=== PATIENT | female | born 1940 | race Hispanic/Latino ===

== ENCOUNTER → 2018-11-06 | Outpatient (CLI) | payer OTHER, MEDICARE | END | disposition home or self-care (01) | LOC: RAH 08:10 | PROVIDERS: ATTEND Internal Medicine | DX: R10.9 Unspecified abdominal pain (principal); I70.0 Atherosclerosis of aorta; Z90.49 Acquired absence of other specified parts of digestive tract | CPT/HCPCS: 76700 ==

== ENCOUNTER 2018-11-27 22:06 | Inpatient (IN) | payer OTHER, MEDICARE ==
[~2018-11-27] VITALS: Ht 147.3 cm; Wt 45.7 kg
[2018-11-27] MEDS ORDERED: ONDANSETRON HCL 4 MG/2 ML VIAL ONE (23:01)
[2018-11-27] MEDS ORDERED: ACETAMINOPHEN EXTRA STRENGTH 500 MG TABLET ONE (23:02)
[2018-11-27] MEDS ORDERED: SODIUM CHLORIDE 0.9% 1000ML 1,000 ML IV ONE (23:02)
[2018-11-27] MEDS ORDERED: SODIUM CHLORIDE 0.9% 100 ML IV ONE (23:02)
[2018-11-27 23:12] LABS: BASOPHILS % (AUTO) 0.3 % (0.0-5.0); EOSINOPHILS % (AUTO) 0.2 % (0.0-8.0); HEMATOCRIT 35.1 % (36-48); LYMPHOCYTES % (AUTO) 1.3 % (21.0-51.0); MEAN CORPUSCULAR HEMOGLOBIN 31.1 pg (27.0-33.0); MEAN CORPUSCULAR VOLUME 91.4 fL (79-99); MONOCYTES % (AUTO) 2.9 % (3.0-13.0); NEUTROPHILS % (AUTO) 95.3 % (40.0-77.0); PLATELET COUNT (AUTO) 199 K/uL (130-400); RED BLOOD CELL COUNT(AUTO) 3.84 MIL/uL (4.00-5.50); RED CELL DISTRIBUTION WIDTH 13.2 % (11.0-15.5); WHITE BLOOD COUNT (AUTO) 15.9 K/uL (4.8-10.8)
[2018-11-27 23:18] LABS: CARBON DIOXIDE 23 mmol/L (21-32); CHLORIDE 103 mmol/L (101-111); CREATININE 0.9 mg/dL (0.5-1.5); GLOMERULAR FILTR. RATE CALC 64 mL/min (>60); GLUCOSE,RANDOM 111 mg/dL (70-105); SODIUM SERUM 136 mmol/L (136-145); UREA NITROGEN, BLOOD 26 mg/dL (7-18)
[2018-11-27 23:20] LABS: PARTIAL THROMBOPLASTIN TIME 27.4 SEC (26.3-35.5); PROTHROMBIN TIME 10.5 SEC (9.6-11.6)
[2018-11-27 23:29] LABS: ALANINE AMINOTRANSFERASE 30 U/L (12-78); ALBUMIN 3.5 g/dL (3.5-5.0); ASPARTATE AMINOTRANSFERASE 33 U/L (10-37); BILIRUBIN,TOTAL 0.4 mg/dL (0.2-1.0); CREATINE KINASE, TOTAL 171 U/L (21-232); MYOGLOBIN 181 ng/mL (10-92); TROPONIN I < 0.04 ng/mL (0.00-0.06)
[2018-11-27 23:41] LABS: BAND NEUTROPHILS % (MANUAL) 16 % (0-2); LYMPHOCYTES % (MANUAL) 10 % (22-44); MAN.DIFF COMMENT-IMPRESSION MANUAL DIFFERENTIAL; MONOCYTES % (MANUAL) 7 % (2-9); SEGMENTED NEUTROPHILS % 67 % (40-70)
[2018-11-27 23:42] LABS: PLATELET MORPHOLOGY COMMENT ADEQUATE
[2018-11-28 02:10] LABS: APPEARANCE,URINE Clear (CLEAR); BILIRUBIN,URINE Negative (NEGATIVE); COLOR,URINE Yellow (YELLOW); GLUCOSE, URINE (UA) Negative (NEGATIVE); KETONES,URINE Trace mg/dL (NEGATIVE); LEUKOCYTE ESTERASE ,URINE Negative (NEGATIVE); NITRATE,URINE Negative (NEGATIVE); OCCULT BLOOD,URINE Trace (NEGATIVE); PROTEIN,URINE Negative (NEGATIVE); UROBILINOGEN,URINE 0.2 mg/dL (0.2-1.0)
[2018-11-28 02:16] LABS: BACTERIA,URINE None Seen /HPF (None Seen); MUCUS,URINE Few LPF (None Seen); RBC,URINE 0-1 /HPF (0-1); SQUAMOUS EPITHELIAL CELL,UR Few /HPF (0-2); WBC,URINE None Seen /HPF (0-1)
[2018-11-28] MEDS ORDERED: SODIUM CHLORIDE 0.9% 1000ML 1,000 ML IV ONE (03:25)
[2018-11-28] MEDS: SODIUM CHLORIDE 0.9% 1000ML 1,000 ML IV SCH ×4 (04:05→17:55)
[2018-11-28] MEDS ORDERED: ACETAMINOPHEN 325 MG TAB PO PRN ×2 (04:15)
[2018-11-28] MEDS ORDERED: ONDANSETRON HCL 4 MG/2 ML VIAL IV PRN (04:15)
[2018-11-28] MEDS ORDERED: CEFTRIAXONE SODIUM 1 GM IV SCH (04:15)
[2018-11-28 05:40] VITALS: BP 125/64
[2018-11-28] MEDS ORDERED: KETO10 PO (06:45)
[2018-11-28] MEDS ORDERED: PRAV20TA4 PO (06:45)
[2018-11-28] MEDS ORDERED: AMPI500C12 PO (06:45)
[2018-11-28] MEDS ORDERED: AMLO5TAB9 PO (06:45)
[2018-11-28] MEDS ORDERED: LISI10TA7 PO (06:45)
[2018-11-28 08:00] VITALS: BP 134/80
[2018-11-28] MEDS ORDERED: METRONIDAZOLE 500MG/100ML BAG 100 ML IV SCH (08:15)
[2018-11-28] MEDS ORDERED: LEVOFLOXACIN 500 MG/D5W 100 ML 100 ML IV SCH (08:15)
[2018-11-28] MEDS: INSULIN HUMULIN R 100 UNIT/ML 3ML SQ SCH ×3 (11:30→20:25)
[2018-11-28 11:55] VITALS: BP 142/70
[2018-11-28] MEDS: FAMOTIDINE/PF 20 MG/2 ML VIAL IV SCH ×2 (12:52→20:27)
[2018-11-28] MEDS: ENOXAPARIN SODIUM 30 MG/0.3 ML SQ SCH ×2 (12:56→20:29)
--- NOTE | 2018-11-28 13:00 | NUR ---
INMIMI Met w pt at bedside, aaox3, weak, up and down to restroom multiple times valdez deras pt states lives [place], identified ather "patrona" states she has a room in exchange for housework- does the floors, etc. states she must keep working because she is trying to arrange her sons paper from [employer]. states she has been working for [employer] for 25 years. mauritanian speaking, this cm sought out talita Dozier to clarify the conversation, will follow in am Addendum: 11/28/18 at 1923 by SHAHEEN HE RN Amended: Links added.
[2018-11-28] MEDS: METRONIDAZOLE 500MG/100ML BAG 100 ML IV SCH ×2 (14:49→21:32)
[2018-11-28 15:38] VITALS: BP 127/57
--- NOTE | 2018-11-28 17:14 | NUR ---
SS REFERRAL Sw met with pt who is a very pleasant 78yro woman. 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 Pt reports she still lives with Ms [employer] and continues to help [employer] for extra money. Pt states she is trying to pay for "papers" for pt's kids to [facility] residents. Pt states MS [employer] and her 3 kids are her family.
--- NOTE | 2018-11-28 17:29 | NUR ---
Nutrition Intervention: Nutrition consult due to s/s dehydration. Pt. admitted with Dx of Gastroenteritis, fever, dehydration. Pt. on Clear Liquids with good p.o. intake of dinner meal. Labs reviewed(Alb 3.5). LBM: 11/28/18, loose. SR-17, loose. BMI: 21, appropriate for age. Recommendations: 1) When medically feasible, rec. advance diet as tolerated to [facility] diet. 2) Continue to monitor pt's nutritional status and diet advancement. 3) Consult RD as nutrition concerns arise. Addendum: 11/28/18 at [address] Amended: Links added.
[2018-11-28] MEDS: LOPERAMIDE HCL 2 MG CAP PO PRN (17:55)
[2018-11-28] MEDS ORDERED: PHARMACY COMMUNICATION MISC SCH (18:45)
[2018-11-28 19:10] VITALS: BP 112/49
[2018-11-28] MEDS: LEVOFLOXACIN 500 MG/D5W 100 ML 100 ML IV SCH (20:27)
[2018-11-29] VITALS (7 sets, daily range): BP systolic 101–122; BP diastolic 47–64
[2018-11-29] MEDS: SODIUM CHLORIDE 0.9% 1000ML 1,000 ML IV SCH ×3 (02:16→16:01)
[2018-11-29 05:58] LABS: HEMATOCRIT 29.5 % (36-48); MEAN CORPUSCULAR HGB CONC 33.5 g/dL (32.0-36.0); MEAN CORPUSCULAR VOLUME 92.4 fL (79-99); PLATELET COUNT (AUTO) 156 K/uL (130-400); RED CELL DISTRIBUTION WIDTH 13.6 % (11.0-15.5); WHITE BLOOD COUNT (AUTO) 9.8 K/uL (4.8-10.8)
[2018-11-29 06:03] LABS: ALBUMIN 2.4 g/dL (3.5-5.0); CREATININE 0.7 mg/dL (0.5-1.5); MAGNESIUM 1.9 mg/dL (1.80-2.40); PHOSPHORUS 1.5 mg/dL (2.5-4.9)
[2018-11-29 06:07] LABS: POTASSIUM 2.6 mmol/L (3.5-5.1)
[2018-11-29] MEDS: INSULIN HUMULIN R 100 UNIT/ML 3ML SQ SCH ×4 (06:32→21:48)
[2018-11-29] MEDS: METRONIDAZOLE 500MG/100ML BAG 100 ML IV SCH ×3 (06:59→21:48)
[2018-11-29] MEDS ORDERED: POTASSIUM CHLORIDE 20MEQ/100ML 100 ML IV PRN (08:00)
[2018-11-29] MEDS ORDERED: POTASSIUM CHLORIDE 10% ELIXIR 20 MEQ/15 ML UDCUP PO PRN (08:00)
[2018-11-29] MEDS ORDERED: LIDOCAINE HCL-MPF 1% 2ML VIAL IVP PRN (08:00)
[2018-11-29] MEDS ORDERED: MAGNESIUM 2GM PREMIX 50ML 50 ML IV PRN (08:00)
[2018-11-29] MEDS: FAMOTIDINE/PF 20 MG/2 ML VIAL IV SCH ×2 (09:29→21:49)
[2018-11-29] MEDS: LISINOPRIL 10 MG TABLET PO SCH (09:36)
[2018-11-29] MEDS: AMLODIPINE BESYLATE 5 MG TAB PO SCH (10:30)
[2018-11-29] MEDS: LOPERAMIDE HCL 2 MG CAP PO PRN (10:30)
[2018-11-29] MEDS: POTASSIUM CHLORIDE 20 MEQ ERTAB PO PRN ×3 (10:30→16:16)
[2018-11-29] MEDS: ENOXAPARIN SODIUM 30 MG/0.3 ML SQ SCH ×2 (10:35→21:48)
[2018-11-29] MEDS: KETOROLAC TROMETHAMINE 10 MG TABLET PO SCH ×3 (10:39→18:46)
[2018-11-29] MEDS: LEVOFLOXACIN 500 MG/D5W 100 ML 100 ML IV SCH (19:00)
[2018-11-29] MEDS: Pravastatin Sodium 20 MG PO SCH (21:00)
[2018-11-30 04:08] VITALS: BP 101/55
[2018-11-30 05:20] LABS: BASOPHILS % (AUTO) 0.7 % (0.0-5.0); HEMATOCRIT 30.1 % (36-48); LYMPHOCYTES % (AUTO) 24.3 % (21.0-51.0); MEAN CORPUSCULAR HEMOGLOBIN 31.9 pg (27.0-33.0); MEAN CORPUSCULAR HGB CONC 34.9 g/dL (32.0-36.0); MEAN CORPUSCULAR VOLUME 91.6 fL (79-99); MONOCYTES % (AUTO) 10.8 % (3.0-13.0); NEUTROPHILS % (AUTO) 63.2 % (40.0-77.0); NUCLEATED RED BLOOD CELLS 0.1 % (0.0-0.19); PLATELET COUNT (AUTO) 155 K/uL (130-400); RED BLOOD CELL COUNT(AUTO) 3.29 MIL/uL (4.00-5.50); RED CELL DISTRIBUTION WIDTH 13.4 % (11.0-15.5); WHITE BLOOD COUNT (AUTO) 4.9 K/uL (4.8-10.8)
[2018-11-30 05:45] LABS: CREATININE 0.4 mg/dL (0.5-1.5); POTASSIUM 3.3 mmol/L (3.5-5.1)
[2018-11-30] MEDS: KETOROLAC TROMETHAMINE 10 MG TABLET PO SCH ×5 (05:51→23:58)
[2018-11-30] MEDS: METRONIDAZOLE 500MG/100ML BAG 100 ML IV SCH ×3 (05:51→22:43)
[2018-11-30] MEDS: POTASSIUM CHLORIDE 20 MEQ ERTAB PO PRN ×2 (05:59→16:14)
[2018-11-30] MEDS: INSULIN HUMULIN R 100 UNIT/ML 3ML SQ SCH ×4 (07:24→21:00)
[2018-11-30 08:00] VITALS: BP 104/54
[2018-11-30] MEDS: AMLODIPINE BESYLATE 5 MG TAB PO SCH (09:47)
[2018-11-30] MEDS: FAMOTIDINE/PF 20 MG/2 ML VIAL IV SCH ×2 (09:48→20:15)
[2018-11-30] MEDS: LISINOPRIL 10 MG TABLET PO SCH (09:48)
[2018-11-30] MEDS: ENOXAPARIN SODIUM 30 MG/0.3 ML SQ SCH ×2 (09:48→20:15)
[2018-11-30] MEDS ORDERED: CLOP75TA32 PO (11:42)
[2018-11-30 12:00] VITALS: BP 104/51
[2018-11-30] MEDS: SODIUM CHLORIDE 0.9% 1000ML 1,000 ML IV SCH ×2 (13:00→18:22)
[2018-11-30] MEDS ORDERED: LACTOBACILLUS RHAMNOSUS GG 1 EACH CAP.SPRINK PO SCH (14:55)
[2018-11-30 16:00] VITALS: BP 99/52
[2018-11-30 20:00] VITALS: BP 115/62
[2018-11-30] MEDS: LEVOFLOXACIN 500 MG/D5W 100 ML 100 ML IV SCH (20:13)
[2018-11-30] MEDS: Pravastatin Sodium 20 MG PO SCH (20:16)
[2018-12-01] VITALS: BP 135/65
[2018-12-01 04:00] VITALS: BP 120/59
[2018-12-01] MEDS: INSULIN HUMULIN R 100 UNIT/ML 3ML SQ SCH (05:39)
[2018-12-01] MEDS: METRONIDAZOLE 500MG/100ML BAG 100 ML IV SCH (05:41)
[2018-12-01] MEDS: KETOROLAC TROMETHAMINE 10 MG TABLET PO SCH (05:41)
[2018-12-01 06:09] LABS: MEAN CORPUSCULAR HEMOGLOBIN 31.9 pg (27.0-33.0); MEAN CORPUSCULAR HGB CONC 34.9 g/dL (32.0-36.0); MEAN CORPUSCULAR VOLUME 91.5 fL (79-99); PLATELET COUNT (AUTO) 203 K/uL (130-400); RED BLOOD CELL COUNT(AUTO) 3.61 MIL/uL (4.00-5.50); RED CELL DISTRIBUTION WIDTH 13.8 % (11.0-15.5); WHITE BLOOD COUNT (AUTO) 4.7 K/uL (4.8-10.8)
[2018-12-01 06:28] LABS: CREATININE 0.6 mg/dL (0.5-1.5); POTASSIUM 3.6 mmol/L (3.5-5.1)
[2018-12-01 08:00] VITALS: BP 115/59
[2018-12-01] MEDS: ENOXAPARIN SODIUM 30 MG/0.3 ML SQ SCH (09:00)
[2018-12-01] MEDS: FAMOTIDINE/PF 20 MG/2 ML VIAL IV SCH (09:00)
[2018-12-01] MEDS: AMLODIPINE BESYLATE 5 MG TAB PO SCH (09:00)
[2018-12-01] MEDS ORDERED: METR250T PO (09:00)
[2018-12-01] MEDS ORDERED: ACID1TAB PO (09:15)
--- NOTE | 2018-12-01 13:00 | NUR ---
DISCHARGE PATIENT GIVEN DISCHARGE INSTRUCTIONS VIA TEACH BACK. 20G PIV TO LAC DISCONTINUED, TIP INTACT. RX GIVEN FOR LACTINEX AND FLAGYL. PATIENT TO FOLLOW UP WITH DR. VANCE. PATIENT STABLE AT THIS TIME. PATIENT WHEELED DOWNSTAIRS BY TREVON GAR.
== END 2018-12-01 13:00 | disposition home or self-care (01) | DRG 872 ==
LOC: EDH 22:06 → EDHIP 11-28 03:45 → 3BH 11-28 05:47
PROVIDERS: ADMIT Internal Medicine; ATTEND Internal Medicine
DX: A41.9 Sepsis, unspecified organism (principal); A04.9 Bacterial intestinal infection, unspecified; K40.90 Unilateral inguinal hernia, without obstruction or gangrene, not specified as recurrent; E86.0 Dehydration; E87.6 Hypokalemia; E11.9 Type 2 diabetes mellitus without complications; E78.5 Hyperlipidemia, unspecified; E83.42 Hypomagnesemia; I10 Essential (primary) hypertension
CPT/HCPCS: 36415; 71045; 74176; 80048; 80053; 81001; 82040; 82550; 82948; 83605; 83735; 83874; 84100; 84484; 85025; 85027; 85610; 85730; 87040; 87088; 87804; 93005; G0378; J1650; J1956; J2405; J3480; J3490; J7030

== ENCOUNTER → 2020-10-21 | Outpatient (CLI) | payer OTHER, MEDICARE ==
[~2020-10-21] MED LIST: ACID1TAB PO; AMLO-257 PO; CLOP75TA32 PO; KETO10 PO; LISI10TA24 PO; METR250T PO; PRAV20TA4 PO
== END | disposition home or self-care (01) ==
LOC: RAH 07:43
PROVIDERS: ATTEND Internal Medicine
DX: K40.20 Bilateral inguinal hernia, without obstruction or gangrene, not specified as recurrent (principal); N85.8 Other specified noninflammatory disorders of uterus
CPT/HCPCS: 76856

== ENCOUNTER 2022-09-29 01:09 | Emergency (ER) | payer OTHER, MEDICARE ==
[~2022-09-29] VITALS: Ht 149.9 cm; Wt 44.6 kg
[2022-09-29] MEDS ORDERED: 0.9%NACL 1000ML 1,000 ML IV SCH (01:30)
[2022-09-29 01:41] LABS: APPEARANCE,URINE CLEAR (CLEAR); BILIRUBIN,URINE NEGATIVE (NEGATIVE); COLOR,URINE COLORLESS (YELLOW); GLUCOSE, URINE (UA) NEGATIVE (NEGATIVE); KETONES,URINE NEGATIVE (NEGATIVE); LEUKOCYTE ESTERASE ,URINE NEGATIVE Leu/uL (NEGATIVE); NITRATE,URINE NEGATIVE (NEGATIVE); OCCULT BLOOD,URINE NEGATIVE (NEGATIVE); PROTEIN,URINE NEGATIVE (NEGATIVE); UROBILINOGEN,URINE 0.2 mg/dL (0.2-1.0)
[2022-09-29] MEDS ORDERED: ACETAMINOPHEN 500 MG TABLET PO ONE (02:00)
[2022-09-29 02:02] LABS: BASOPHILS % (AUTO) 0.8 % (0.0-5.0); HEMATOCRIT 34.4 % (36-48); LYMPHOCYTES % (AUTO) 23.5 % (21.0-51.0); MEAN CORPUSCULAR HEMOGLOBIN 30.9 pg (27.0-33.0); MEAN CORPUSCULAR HGB CONC 33.7 g/dL (32.0-36.0); MEAN CORPUSCULAR VOLUME 91.7 fL (79-99); MONOCYTES % (AUTO) 13.1 % (3.0-13.0); NEUTROPHILS % (AUTO) 57.4 % (40.0-77.0); PLATELET COUNT (AUTO) 194 K/uL (130-400); RED BLOOD CELL COUNT(AUTO) 3.75 MIL/uL (4.00-5.50); WHITE BLOOD COUNT (AUTO) 6.4 K/uL (4.8-10.8)
[2022-09-29 02:04] VITALS: BP 133/56
[2022-09-29 02:33] LABS: CREATININE 0.9 mg/dL (0.5-1.5); POTASSIUM 3.7 mmol/L (3.5-5.1)
[2022-09-29 02:40] LABS: ALBUMIN 3.9 g/dL (3.5-5.0); TOTAL PROTEIN, SERUM 7.1 g/dL (6.0-8.3)
== END 2022-09-29 03:14 | disposition home or self-care (01) ==
LOC: EDH 01:09
DX: R53.83 Other fatigue (principal); I10 Essential (primary) hypertension; E78.00 Pure hypercholesterolemia, unspecified; E86.0 Dehydration; Z90.49 Acquired absence of other specified parts of digestive tract; Z79.1 Long term (current) use of non-steroidal anti-inflammatories (NSAID); Z79.899 Other long term (current) drug therapy; Z79.01 Long term (current) use of anticoagulants; Z20.822 Contact with and (suspected) exposure to COVID-19
CPT/HCPCS: 99285; 84484; 80053; 85025; 87040 ×2; 87804 ×2; 83605; 81003; 36415; 87635; 71045; 96360; 93005; C9803; J7030

== ENCOUNTER → 2024-03-29 | Outpatient (CLI) | payer OTHER, MEDICARE | END | disposition home or self-care (01) | LOC: RAH 14:33 | PROVIDERS: ATTEND Student in an Organized Health Care Education/Training Program | DX: R10.2 Pelvic and perineal pain (principal) | CPT/HCPCS: 76882 ==